=== PATIENT | female | born 1995 | race Caucasian/White ===

== ENCOUNTER 2019-06-21 22:52 | Emergency (ER) | payer SELFPAY ==
[~2019-06-21] VITALS: Ht 170.2 cm; Wt 65.9 kg
[2019-06-21 22:54] VITALS: Ht 170.2 cm; Wt 65.9 kg
== END 2019-06-21 23:00 | disposition home or self-care (01) ==
LOC: D.ER 22:52
DX: R60.9 Edema, unspecified (principal); M25.571 Pain in right ankle and joints of right foot